=== PATIENT | male | born 1940 | race Caucasian/White ===

== ENCOUNTER 2017-08-14 06:01 | Day surgery (SDC) | payer MEDICARE, BC ==
[~2017-08-14] VITALS: Ht 177.8 cm; Wt 102.3 kg
[2017-08-14] VITALS (10 sets, daily range): BP systolic 102–135; BP diastolic 68–80; PULSE 60–89; TEMP 98–98.4
[~2017-08-14 06:01] MED LIST: ASPIRIN 81M81 MG/TA2 PO; CEPHALEXIN500 M1 PO; LIPITOR 40MG TA40 MG PO; MYSOLINE 250MG250 MG PO; TOPROL XL 50MG50 MG PO
[2017-08-14 07:11] LABS: HEMATOCRIT 39.4 % (42.0-52.0); HEMOGLOBIN 13.1 g/dl (13.5-18.0); MEAN CELL VOLUME 93 fl (80.0-100.0); MEAN CORPUSCULAR HEMOGLOBIN 31 pg (27.0-31.0); MEAN CORPUSCULAR HGB CONC 33 g/dl (33.0-37.0); MEAN PLATELET VOLUME 9.9 fl (7.4-10.4); PLATELET COUNT 133 K/mm3 (130-400); RED BLOOD COUNT 4.24 M/mm3 (4.20-5.60); WHITE BLOOD COUNT 5.8 K/mm3 (4.8-10.8)
[2017-08-14] MEDS ORDERED: ZYRTEC 10MG10 MG PO (07:14)
[2017-08-14] MEDS ORDERED: MYSOLINE 5050 MG/TAB PO (07:14)
[2017-08-14] MEDS ORDERED: MUCUS RELIEF200 MG PO (07:15)
[2017-08-14] MEDS ORDERED: MULTI VITAMINS1 TAB PO (07:15)
[2017-08-14] MEDS ORDERED: ASPIRIN 32325 MG/TAB PO (07:15)
[2017-08-14 07:17] LABS: CALCIUM 9.1 mg/dL (8.4-10.2); CREATININE, serum 0.84 mg/dL (0.66-1.25); POTASSIUM 4.5 mmol/L (3.4-5.0)
[2017-08-14 07:23] LABS: INR 1.1 (0.8-3.0); PROTHROMBIN TIME 12.2 SECONDS (9.7-12.8)
[2017-08-14] MEDS ORDERED: ZEBETA 5MG5 MG PO (11:49)
== END 2017-08-14 12:50 | disposition home or self-care (01) ==
LOC: COL.CAR 06:01
PROVIDERS: Internal Medicine Cardiovascular Disease
DX: I25.10 Atherosclerotic heart disease of native coronary artery without angina pectoris (principal); R94.39 Abnormal result of other cardiovascular function study; I10 Essential (primary) hypertension; E11.9 Type 2 diabetes mellitus without complications; E78.00 Pure hypercholesterolemia, unspecified; Z95.0 Presence of cardiac pacemaker; Z87.891 Personal history of nicotine dependence
CPT/HCPCS: C1760; C1769; C1887; C1894; J1644; J2250; J3010; Q9967

== ENCOUNTER 2022-02-07 08:15 | Day surgery (SDC) | payer MEDICARE, BC ==
[2022-02-07] VITALS (12 sets, daily range): BP systolic 117–149; BP diastolic 52–91; PULSE 60–75; TEMP 98.8
[~2022-02-07] VITALS: Ht 177.8 cm; Wt 99.6 kg
[~2022-02-07 08:15] MED LIST changes: +MUCUS RELIEF200 MG PO; +MULTI VITAMINS1 TAB PO; +MYSOLINE 5050 MG/TAB PO; +ZEBETA 5MG5 MG PO; +ZYRTEC 10MG10 MG PO
[2022-02-07 09:09] LABS: HEMATOCRIT 39.8 % (42.0-52.0); HEMOGLOBIN 13.4 g/dl (13.5-18.0); MEAN CELL VOLUME 92 fl (80.0-100.0); MEAN CORPUSCULAR HEMOGLOBIN 31 pg (27-31); MEAN CORPUSCULAR HGB CONC 34 g/dl (33.0-37.0); MEAN PLATELET VOLUME 9.4 fl (7.4-10.4); PLATELET COUNT 201 K/mm3 (130-400); RED BLOOD COUNT 4.31 M/mm3 (4.20-5.60); REDCELL DISTRIBUTION WIDTH-CV 13.8 % (11.5-14.5)
[2022-02-07 09:12] LABS: PROTHROMBIN TIME 11.5 SECONDS (9.7-12.8)
[2022-02-07 09:15] LABS: PARTIAL THROMBOPLASTIN TIME 30.4 SECONDS (26.0-37.0)
[2022-02-07 09:28] LABS: CALCIUM 8.7 mg/dL (8.4-10.2); CREATININE, serum 0.82 mg/dL (0.72-1.25); POTASSIUM 4.8 mmol/L (3.5-4.5)
[2022-02-07] MEDS ORDERED: LIPITOR 40MG TA40 MG PO (09:29)
[2022-02-07] MEDS ORDERED: AMARYL1 MG PO (09:29)
--- NOTE | 2022-02-07 10:55 | NUR ---
PATIENT ALERT AND ORIENTED, NO REPORTS OF PAIN OR DISCOMFORT. FAMILY AT SIDE. SEE MERGE FOR IT CORPORATE RECRUITER PROCEDURE DOCUMENTATION WELL MEDICATION ADMINISTRATION AND HEMODYNAMIC MONITORING AND VITAL SIGNS.
[2022-02-07] MEDS ORDERED: TIAZAC120 MG PO (11:48)
[2022-02-07] MEDS ORDERED: HCTZ 25MG TAB25 MG PO (11:49)
--- NOTE | 2022-02-07 16:00 | NUR ---
dISCHARGE INSTRUCTIONS GIVEN TO PT.PT VERBALIZES UNDERSTANDING.int REMOVED,CATHETER TIP INTACT.dRESSING TO RIGHT GROIN OBSERVED CLEAN,DRY,AND SOFT TO TOUCH.RIGHT RADIAL SITE COVERED IN GAUZE AND COBAN OBSERVED CLEAN,DRY,INTACT,SOFT TO TOUCH.PT ESCORTEDOUT VIA WHEELCHAIR BY THIS NURSE.
== END 2022-02-07 18:02 ==
LOC: COL.CAR 08:15
PROVIDERS: Internal Medicine Cardiovascular Disease
DX: I25.119 Atherosclerotic heart disease of native coronary artery with unspecified angina pectoris (principal); R06.09 Other forms of dyspnea; E78.5 Hyperlipidemia, unspecified; I10 Essential (primary) hypertension; Z87.891 Personal history of nicotine dependence; Z79.899 Other long term (current) drug therapy
CPT/HCPCS: C1769; C1887; C1894; J1644; J2250; J3010